=== PATIENT | female | born 1970 | race Caucasian/White ===

== ENCOUNTER → 2017-08-13 | Outpatient (CLI) | payer BC ==
[~2017-08-13] MED LIST: ADV250INH INH; ADVI200C PO; ADVI200C5 PO; AIRB1CHW PO; AZEL0.055; CALCIUM/VIT D PO; CELE10TA PO; CENTTAB47 PO; ESTR1TAB PO; FLUO10TA2 PO; LEVAINH INH; LEVO750T13 PO; MECL-68 PO; METH4PACK PO; MONT10TA2 PO; PROG200C PO; VITA500T PO; XANA0.25 PO
[2017-08-13 20:39] LABS: MEAN CORPUSCULAR HEMOGLOBIN 31.3 pg (27.0-33.0); MEAN CORPUSCULAR HGB CONC 32.3 g/dl (32.0-36.5); MEAN CORPUSCULAR VOLUME 96.9 fl (80.0-96.0); PLATELET COUNT, AUTOMATED 373 10^3/uL (150-450); RED CELL DISTRIBUTION WIDTH 12.5 % (11.5-14.5); WHITE BLOOD COUNT 6.1 10^3/uL (4.0-10.0)
[2017-08-13 21:00] LABS: ANION GAP 5 MEQ/L (8-16); BLOOD UREA NITROGEN 12 MG/DL (7-18); CALCIUM LEVEL 9.3 MG/DL (8.5-10.1); CARBON DIOXIDE LEVEL 30 MEQ/L (21-32); CHLORIDE LEVEL 101 MEQ/L (98-107); CREATININE FOR GFR 0.82 MG/DL (0.55-1.02); GLOMERULAR FILTRATION RATE > 60.0 (>58); GLUCOSE, FASTING 94 MG/DL (70-105); POTASSIUM SERUM 4.1 MEQ/L (3.5-5.1); SODIUM LEVEL 136 MEQ/L (136-145)
== END ==
LOC: M LAB REF 09:26
DX: Z01.818 Encounter for other preprocedural examination (principal); M20.10 Hallux valgus (acquired), unspecified foot

== ENCOUNTER 2017-08-28 07:33 | Day surgery (SDC) | payer BC ==
[~2017-08-28] VITALS: Ht 157.5 cm; Wt 76.2 kg
[2017-08-28] MEDS ORDERED: LR 1,000 ML IV ONE (07:45)
[2017-08-28] MEDS ORDERED: BUPIVACAINE HCL 0.5% 10 ML VIAL As Ordered ONE (08:46)
[2017-08-28] MEDS ORDERED: dexameTHASONE 4 MG/ML 1ML VIAL (J1100) As Ordered ONE (08:46)
[2017-08-28] MEDS ORDERED: LIDOCAINE 1% MDV 20ML VIAL As Ordered ONE (08:46)
[2017-08-28] MEDS ORDERED: PROPOFOL 500 MG/50 ML VIAL As Ordered ONE (09:05)
[2017-08-28] MEDS ORDERED: LIDOCAINE 2% INJ 100 MG/5 ML SDV (FOR ANES.) As Ordered ONE (09:05)
[2017-08-28] MEDS ORDERED: MIDAZOLAM INJ 2 MG/2 ML VIAL (J2250) As Ordered ONE (09:05)
[2017-08-28] MEDS ORDERED: fentaNYL 100 MCG/2 ML INJECTION (J3010) As Ordered ONE (09:05)
[2017-08-28] MEDS ORDERED: HYDR-3713 PO (10:55)
[2017-08-28 11:30] VITALS: BP 124/76
--- NOTE | 2017-08-28 13:50 | RO ---
DATE OF PROCEDURE: 08/28/2017 PREOPERATIVE DIAGNOSIS: Left foot bunion and hallux rigidus. POSTOPERATIVE DIAGNOSIS: Left foot bunion and hallux rigidus. PROCEDURE: Left foot bunionectomy with first metatarsal osteotomy and cheilectomy. SURGEON: Nnamdi Floyd DPM WEBBING TACKER: ANESTHESIA: Monitored anesthesia care (MAC), preoperative injection of 20 mL of 1:1 mixture of 1% lidocaine plain and 0.5% Marcaine plain. ESTIMATED BLOOD LOSS: Minimal. MATERIAL: Arthrex 3.5 headless screw, #3-0 and #4-0 Vicryl, #4-0 nylon. COMPLICATIONS: None. CONDITION: Stable. Yanique Alejandra is a 46-year-old female who presents to [facility] with complaints of painful bunion to her left foot. She presents today for surgical correction. The patient's side and site were identified and marked in the preop holding area. Consent was reviewed and obtained. All risks, complications and alternatives to the procedure were explained to the patient in detail and all questions were answered. PROCEDURE: The patient was brought to the operating room and placed on the operating room table in supine position. Monitored anesthesia care was delivered by the anesthesia team. Preoperative injection of 20 mL of 1:1 mixture of 1% lidocaine plain and 0.5% Marcaine plain were injected into the left foot. The left foot was prepped and draped in a normal sterile fashion. Tourniquet was inflated at 250 mmHg. Patient did receive Ancef preoperatively. A dorsal incision was drawn and carried through with a #15 blade. Dissection was carried down until the 1st metatarsal joint capsule was identified. Bovie was used to maintain hemostasis along the way. A T-capsulotomy was performed exposing the metatarsal head. Significant dorsal spurring was noted as well as large osteophytes within the 1st metatarsal phalangeal joint. The osteophytes were removed and the spurring was removed with saggital saw. Following this, a lateral release was performed releasing the adductor tendon and lateral capsule and sesamoidal ligaments. A McGlamry elevator was used to free the plantar structure. Next, the medial eminence of the metatarsal head was removed with sagittal saw and osteotomy was performed of the metatarsal head transposing it laterally. This was fixated with a Arthrex 3.5 headless screw. The remaining bone ledge was removed with a sagittal saw and the site was smoothed with a rasp. The site was irrigated with normal saline. A small wedge of capsule was removed from the medial capsule and then capsular repair was performed with #3-0 Vicryl, subcutaneous closure with #4-0 Vicryl and the skin with closure with #4-0 nylon. 1 mL of Decadron was injected. Sterile dressing was applied. Tourniquet was deflated. The patient was brought to the postanesthesia care unit (PACU) with vital signs stable, neurovascular status intact. She will be partial weightbearing on the left foot. She will followup in the office in two days.
== END 2017-08-28 11:37 | disposition home or self-care (01) ==
LOC: M SDC 07:33
PROVIDERS: ATTEND Podiatrist Foot & Ankle Surgery
DX: M21.612 Bunion of left foot (principal); M20.22 Hallux rigidus, left foot; J45.909 Unspecified asthma, uncomplicated; F41.9 Anxiety disorder, unspecified; F32.9 Major depressive disorder, single episode, unspecified; G47.30 Sleep apnea, unspecified
CPT/HCPCS: 28289; 28296; 88300; 97116; C1713; J0690; J1100; J2250; J3010

== ENCOUNTER 2018-12-17 06:04 | Day surgery (SDC) | payer BC ==
[~2018-12-17] VITALS: Ht 157.5 cm; Wt 79.8 kg
[~2018-12-17 06:04] MED LIST changes: +ADVI1CAP2 PO; -ADVI200C PO; +HYDR-3713 PO
[2018-12-17] MEDS ORDERED: LR 1,000 ML IV ONE (07:00)
[2018-12-17] MEDS ORDERED: LIDOCAINE 1% MDV 20ML VIAL As Ordered ONE (07:07)
[2018-12-17] MEDS ORDERED: dexameTHASONE 4 MG/ML 1ML VIAL (J1100) As Ordered ONE ×2 (07:08→07:16)
[2018-12-17] MEDS ORDERED: BUPIVACAINE HCL 0.5% 10 ML VIAL As Ordered ONE (07:08)
[2018-12-17] MEDS ORDERED: fentaNYL 100 MCG/2 ML INJECTION (J3010) As Ordered ONE (07:10)
[2018-12-17] MEDS ORDERED: LIDOCAINE 2% INJ 100 MG/5 ML SDV (FOR ANES.) As Ordered ONE (07:11)
[2018-12-17] MEDS ORDERED: PROPOFOL 200 MG/20 ML VIAL As Ordered ONE ×2 (07:11→08:41)
[2018-12-17] MEDS ORDERED: MIDAZOLAM INJ 2 MG/2 ML VIAL (J2250) As Ordered ONE (07:11)
[2018-12-17] MEDS ORDERED: ONDANSETRON 4MG/2ML VIAL (J2405) As Ordered ONE (07:16)
[2018-12-17] MEDS ORDERED: HYDR-3713 PO (08:31)
[2018-12-17 09:10] VITALS: BP 136/80
[2018-12-17] MEDS ORDERED: fentaNYL 100 MCG/2 ML INJECTION (J3010) IV PRN (09:30)
[2018-12-17] MEDS ORDERED: METOCLOPRAMIDE INJ 10MG/2ML VIAL (J2765) IV PRN (09:30)
[2018-12-17] MEDS ORDERED: ONDANSETRON 4MG/2ML VIAL (J2405) IV PRN (09:30)
[2018-12-17] MEDS ORDERED: LR 1,000 ML IV SCH (09:30)
--- NOTE | 2018-12-17 10:37 | RO ---
DATE OF PROCEDURE: 12/17/2018 PREOPERATIVE DIAGNOSES: Right foot bunion, hallux limitus. POSTOPERATIVE DIAGNOSES: Right foot bunion, hallux limitus. PROCEDURE: Right foot bunionectomy with first metatarsal osteotomy and cheilectomy. SURGEON: Nnamdi Floyd DPM ASSIGNMENT CLERK: None. ANESTHESIA: Monitored anesthesia care (MAC). Preop injection of 20 mL of 1:1 mixture of 1% lidocaine plain and 0.5% Marcaine plain. ESTIMATED BLOOD LOSS: Minimal. MATERIALS: Arthrex 3.5 headless compression screw, #3-0 and #4-0 Vicryl, #4-0 nylon. INJECTABLES: 1 mL of Decadron 4 mg/mL. COMPLICATIONS: None. CONDITION: Stable. Yanique Alejandra is a 47-year-old female who presents to [facility] with complaints of painful right bunion. She presents today for surgical correction. The patient's side and site were identified and marked in the preop holding area. Consent was reviewed and obtained. All risks, complications and alternatives to the procedure were explained to the patient in detail and all questions were answered. PROCEDURE: The patient was brought to the operating room and placed on the operating room table in supine position. Monitored anesthesia care was delivered by the anesthesia team. Preoperative injection of 20 mL of 1:1 mixture of 1% lidocaine and 0.5% Marcaine plain were injected to the right foot. The right foot was prepped and draped in a normal sterile fashion. A tourniquet was applied to the right ankle and inflated to 225 mmHg. The patient received Ancef preoperatively. A dorsal incision was first drawn and carried through over the first metatarsal phalangeal joint with a #15 blade. Dissection was carried tot he metatarsal phalangeal joint and capsule was identified. Bovie was used to cauterize small vessels along the dissection plane. A T-capsulotomy was performed exposing the first metatarsal head. There was noted to be an osteophyte in the dorsal prominence of the first metatarsal head. The osteophyte and the exostosis were removed with a rongeur and saggital saw. Following this, a lateral release was performed releasing the adductor tendon, lateral capsule, and sesamoidal ligaments. A McGlamry elevator was used to free the plantar structures. There was noted to be some cartilage erosion, but generally the joint surfaces on the phalanx and metatarsal head were acceptable. Next, the medial eminence was resected with a sagittal saw and an osteotomy was performed in the metatarsal head transposing it laterally. This was fixated with an Arthrex 3.5 headless compression screw. The remaining bone ledges were resected with sagittal saw. The site was smoothly rasped and then irrigated with normal saline. A small wedge of the medial capsule was removed and capsular repair was performed with #3-0 Vicryl, subcutaneous closure with #4-0 Vicryl and skin closure with #4-0 nylon. Sterile dressings were applied. Tourniquet was deflated. The patient was brought to post anesthesia care unit (PACU) with vital signs stable and neurovascular status intact. She will be partial weightbearing to the right foot. She will follow-up in the office in two days.
== END 2018-12-17 09:13 | disposition home or self-care (01) ==
LOC: M SDC 06:04
PROVIDERS: ATTEND Podiatrist Foot & Ankle Surgery
DX: M21.611 Bunion of right foot (principal); M20.5X1 Other deformities of toe(s) (acquired), right foot; E78.00 Pure hypercholesterolemia, unspecified; F41.9 Anxiety disorder, unspecified; J45.20 Mild intermittent asthma, uncomplicated; G47.33 Obstructive sleep apnea (adult) (pediatric); M12.9 Arthropathy, unspecified; R29.898 Other symptoms and signs involving the musculoskeletal system; F32.9 Major depressive disorder, single episode, unspecified; R06.83 Snoring; J30.89 Other allergic rhinitis; Z79.899 Other long term (current) drug therapy; Z90.710 Acquired absence of both cervix and uterus
CPT/HCPCS: 28296; 88300; C1713; J0690; J1100; J2250; J2405; J3010